=== PATIENT | female | born 1960 | race American Indian/Alaskan Native ===

== ENCOUNTER 2020-10-14 13:42 | Outpatient (CLI) | payer BC ==
--- NOTE | 2020-10-14 15:11 | Mammography Report ---
DIGITAL SCREENING MAMMOGRAM WITH CAD, 10/14/2020 CLINICAL INFORMATION / INDICATION: Routine screening mammography. SCREENING MAMMOGRAM TECHNIQUE: Digital bilateral 2D mammography was obtained in the craniocaudal and mediolateral obliqu e projections. This examination was interpreted with the benefit of Computer-Aided Detection analysis . COMPARISON: 09/28/2019 and 03/13/2020 FINDINGS: Breast Density: There are scattered areas of fibroglandular density. No dominant mass, suspicious calcifications, or architectural distortion in the right breast. There i s a stable nodule in the upper outer quadrant of the right breast. Previously noted cluster of calcifications in the left breast in the 2 to 3:00 position is again note d and appears unchanged. IMPRESSION: No mammographic evidence of malignancy. Calcifications on the left are stable. There is a stable nodule on the right. Follow up recommendation: Routine yearly BI-RADS Category 2: Benign. A "normal" or negative report should not discourage follow up or biopsy of a clinically significant f inding. A written summary of these findings will be mailed to the patient. The patient will be entered into a mammography reporting system which will generate a reminder letter for the patient's next appointmen t at the appropriate interval. The [employer] recommends yearly mammograms starting at age 40 and continuing as l kameron as a woman is in good health. Breast MRI is recommended for women with an approximate 20-25% or greater lifetime risk of breast cancer, including women with a strong family history of breast or ova suzanne cancer or who have been treated for Hodgkin's disease. Signer Name: Magdaleno Pennington MD Signed: 10/14/2020 3:07 PM Workstation Name: [id number]
== END 2020-10-14 13:43 | disposition home or self-care (01) ==
LOC: SPVWC 13:42
PROVIDERS: ATTEND Surgery
DX: Z12.31 Encounter for screening mammogram for malignant neoplasm of breast (principal); R92.1 Mammographic calcification found on diagnostic imaging of breast
CPT/HCPCS: 77063; 77067